=== PATIENT | male | born 1995 | race Caucasian/White ===

== ENCOUNTER 2016-07-26 07:40 | Emergency (ER) | payer OTHER ==
[~2016-07-26] VITALS: Ht 177.8 cm; Wt 102.1 kg
[2016-07-26 08:05] VITALS: BP 119/64
[2016-07-26] MEDS ORDERED: NEOMY/BACITR/POLYMYXIN OINT PACKET. TP ONE (08:30)
--- NOTE | 2016-07-26 09:05 | ED.ADGEN ---
Past History Past Medical History: No Pertinent History Past Surgical History: No Surgical History Additional Smoking Information: 1 PACK A DAY SMOKER Alcohol Use: None Drug Use: None Adult General Chief Complaint Chief Complaint left foot pain HPI HPI Patient is a 21 year old male who presents with left foot pain. Patient states he's had lesions on the plantar surface of his foot for 2 months. He checked and at the same time his girlfriend was being seen for a different problem. He' s not been seen by doctor, hurts when he puts pressure on the foot. Does not recall any injury. Review of Systems Review of Systems Constitutional: Denies fever or chills [] Eyes: Denies change in visual acuity, redness, or eye pain [] HENT: Denies nasal congestion or sore throat [] Respiratory: Denies cough or shortness of breath [] Cardiovascular: denies chest pain GI: Denies abdominal pain, nausea, vomiting, bloody stools or diarrhea [] : Denies dysuria or hematuria [] Musculoskeletal: Denies back pain or joint pain [] Integument: Denies rash or skin lesions [] Neurologic: Denies headache, focal weakness or sensory changes [] Current Medications Current Medications Current Medications Medications (Trade) Dose Ordered Sig/Adela Start Time Stop Time Status Last Admin Dose Admin Neomycin/ Polymyxin/ Bacitracin (Triple Antibiotic Ointment) 1 pkt 1X ONCE 07/26/16 08:30 07/26/16 08:42 DC Allergies Allergies Allergies Coded Allergies Type Severity Reaction Last Updated Verified No Known Drug Allergies 12/17/15 No Physical Exam Physical Exam Constitutional: Well developed, well nourished, no acute distress, non-toxic appearance. [] Cardiovascular:Heart rate regular Lungs & Thorax: No respiratory distress Skin: Warm, dry Extremities: left plantar surface with blanched skin surround three separate plantar warts with mild ttp Neurologic: Alert and oriented X 3, normal motor function, normal sensory function, no focal deficits noted. [] Psychologic: Affect normal, judgement normal, mood normal. [] Current Patient Data Vital Signs Vital Signs Date Time Temp Pulse Resp B/P Pulse Ox O2 Delivery O2 Flow Rate FiO2 07/26/16 08:05 97.8 85 18 99 Room Air EKG EKG [] Radiology/Procedures Radiology/Procedures [] Course & Med Decision Making Course & Med Decision Making Pertinent Labs and Imaging studies reviewed. (See chart for details) Stressed to the patient to see a syrup machine laborer. Referred to Dr. Barker. He is going to see if Janelle has syrup machine laborer. Final Impression Final Impression Plantar wart.[] Problems: Dragon Disclaimer Dragon Disclaimer This electronic medical record was generated, in whole or in part, using a voice recognition dictation system. DARRYL MORIN MD Jul 26, 2016 09:04
== END 2016-07-26 08:50 | disposition home or self-care (01) ==
LOC: ER 07:40
DX: B07.0 Plantar wart (principal); F17.200 Nicotine dependence, unspecified, uncomplicated
CPT/HCPCS: 99281